=== PATIENT | female | born 1960 | race Caucasian/White ===

== ENCOUNTER → 2024-02-27 | Outpatient (CLI) | payer OTHER ==
--- NOTE | 2024-02-27 15:41 | US ---
EXAMINATION TYPE: US arterial LE multi level DATE OF EXAM: 02/27/2024 2:23 PM COMPARISONS: None. CLINICAL INDICATION: Female, 63 years old with history of L97.524 NON-PRESSURE CHRONIC ULCER OF OTHER PART O; wound on left foot TECHNIQUE: Systolic pressures were taken of the upper and lower extremity arteries with ankle-brachia l indices and toe brachial indices calculated bilaterally. History of: Smoker: Prev 30+ years ago Hypertension: Yes Diabetic: Yes Hyperlipidemia: No TIA/CVA: No Previous Vascular Surgery: No CAD: No VT: No Vascular Ulcers: No Claudication: No Gangrene: No FINDINGS: Doppler Waveforms: Right: Monophasic Left: Monophasic Brachial Artery systolic pressure: Right: 146 Left: 157 Posterior Tibial artery systolic pressure: Right: 139 Left: 159 Dorsalis Pedis artery systolic pressure: Right: 131 Left: 145 Toe artery systolic pressure: Right: 103 Left: 91 Ankle-Brachial Indices: Right: 0.89 Left: 1.01 (Vessel hardening > 1.4; Normal 0.9 - 1.4, Moderate 0.7 - 0.9, Severe 0.5-0.7) Toe Brachial Indices: Right: 0.66 Left: 0.58 (Normal > 0.6; Mild 0.35 - 0.59, Moderate 0.12 - 0.34, Severe <0.12) Unable to obtain right thigh pressure due to pt unable to tolerate pressure IMPRESSION: 1. Normal ankle-brachial brachial indices bilaterally. 2. Mild left peripheral vascular disease by toe brachial index. [facility], Workstation: [id number], 02/27/2024 3:39 PM
== END | disposition home or self-care (01) ==
LOC: RADUSWWP 13:26
PROVIDERS: ATTEND Thoracic Surgery (Cardiothoracic Vascular Surgery)
DX: L97.524 Non-pressure chronic ulcer of other part of left foot with necrosis of bone (principal); E08.621 Diabetes mellitus due to underlying condition with foot ulcer
CPT/HCPCS: 93923

== ENCOUNTER → 2024-04-23 | Outpatient (CLI) | payer OTHER ==
--- NOTE | 2024-04-23 14:33 | NM ---
EXAMINATION TYPE: NM bone 3 phase DATE OF EXAM: 04/23/2024 COMPARISON: 02/06/2024 CLINICAL INDICATION: Female, 63 years old with history of S91.302A UNSPECIFIED OPEN WOUND, LEFT FOOT; Triple phase bone scintigraphy was performed following the injection of 25 mCi Tc 99m MDP. Immediate images and 5.5 hours post injection images acquired. FINDINGS: Increased uptake within the first digit on the left near the metatarsophalangeal joint on all 3 phase s. IMPRESSION: Findings suggestive a osteomyelitis of the first digit near the metatarsophalangeal joint . [facility], , 04/23/2024 2:31 PM
== END | disposition home or self-care (01) ==
LOC: RADNMMAIN 06:54
PROVIDERS: ATTEND Surgery
DX: S91.302A Unspecified open wound, left foot, initial encounter (principal); X58.XXXA Exposure to other specified factors, initial encounter
CPT/HCPCS: 78315; A9503